=== PATIENT | female | born 1990 | race Two or more races ===

== ENCOUNTER 2021-08-22 10:02 | Emergency (ER) | payer MEDICAID ==
[~2021-08-22] VITALS: Ht 152.4 cm; Wt 56.8 kg
[2021-08-22 10:53] LABS: URINE HCG POSITIVE (NEG)
[2021-08-22 10:57] LABS: CLARITY,URINE CLEAR (Clear); COLOR,URINE STRAW (Yellow); GLUCOSE, URINE NEGATIVE (Neg); KETONES,URINE NEGATIVE (Neg); LEUKOCYTE ESTERASE ,URINE NEGATIVE (Neg); NITRITES, URINE NEGATIVE (Neg); OCCULT BLOOD,URINE NEGATIVE (Neg); PROTEIN,URINE NEGATIVE (Neg); UA COLLECTION TYPE CLN CATCH MIDSTREAM; UROBILINOGEN,URINE 0.2 E.U/dL (0.2-1.0)
[2021-08-22] MEDS ORDERED: normal saline 1000ML IV soln IVB ONE (14:30)
[2021-08-22] MEDS ORDERED: dextrose 5%-1/2 normal saline 1,000 ML IV ONE (14:30)
[2021-08-22] MEDS ORDERED: PYRIDOXINE HCL (VITAMIN B6) 250 MG TABLET PO ONE (14:35)
[2021-08-22 14:40] LABS: BASOPHILS % (AUTO) 0.2 % (0-1); EOSINOPHILS # (AUTO) 0.1 X10'3 (0-0.9); EOSINOPHILS % (AUTO) 1.2 % (0-6); HEMATOCRIT 36.1 % (35.0-45.0); HEMOGLOBIN 12.3 g/dl (12.0-16.0); LYMPHOCYTES # (AUTO) 2.3 X10'3 (1.1-4.8); LYMPHOCYTES % (AUTO) 22.2 % (21-51); MEAN CORPUSCULAR HEMOGLOBIN 29.4 PG (27.0-31.0); MEAN CORPUSCULAR HGB CONC 33.9 g/dL (33.0-36.5); MEAN CORPUSCULAR VOLUME 86.6 FL (78-98); MEAN PLATELET VOLUME 8.8 FL (7.4-10.4); MONOCYTES # (AUTO) 0.6 X10'3 (0-0.9); MONOCYTES % (AUTO) 5.8 % (2-12); NEUTROPHILS # (AUTO) 7.3 X10'3 (1.8-7.7); NEUTROPHILS % (AUTO) 70.6 % (42-75); PLATELET COUNT 288 X10'3 (140-440); RED BLOOD COUNT 4.18 X10'6 (4.20-5.60); RED CELL DISTRIBUTION WIDTH 12.8 % (11.5-14.5); WHITE BLOOD COUNT 10.4 X10'3 (4.5-11.0)
[2021-08-22 14:49] LABS: URINE AMPHETAMINE SCREEN NEGATIVE (Neg); URINE BARBITUATE SCREEN NEGATIVE (Neg); URINE BENZODIAZEPINES SCREEN NEGATIVE (Neg); URINE CANNABINOID SCREEN NEGATIVE (Neg); URINE COCAINE SCREEN NEGATIVE (Neg); URINE METHADONE SCREEN NEGATIVE (Neg); URINE OPIATE SCREEN NEGATIVE (Neg); URINE PHENCYCLIDINE SCREEN NEGATIVE (Neg)
[2021-08-22 14:54] LABS: ALANINE AMINOTRANSFERASE 45 U/L (12-78); ALBUMIN 3.6 G/DL (3.4-5.0); ALBUMIN/GLOBULIN RATIO 0.8 (1.1-1.5); ALKALINE PHOSPHATASE 60 IU/L (46-116); ANION GAP 10 (8-16); ASPARTATE AMINO TRANSFERASE 30 U/L (10-37); BILIRUBIN,TOTAL 0.3 MG/DL (0.1-1.0); BLOOD UREA NITROGEN 4 MG/DL (7-18); BUN/CREATININE RATIO 9.3 (6.6-38.0); CALCIUM 8.8 MG/DL (8.5-10.1); CHLORIDE 100 MMOL/L (99-107); CREATININE 0.43 MG/DL (0.40-0.90); GLUCOSE 82 MG/DL (70-104); POTASSIUM 3.8 MMOL/L (3.5-5.1); SODIUM 133 MMOL/L (135-145); TOTAL CARBON DIOXIDE 22.7 MMOL/L (24-32); TOTAL PROTEIN 8.1 G/DL (6.4-8.2); eGFR > 90 ML/MIN
[2021-08-22 17:19] VITALS: BP 106/41
== END 2021-08-22 17:21 | disposition home or self-care (01) ==
LOC: ER 10:03
DX: O21.0 Mild hyperemesis gravidarum (principal); R51.9 Headache, unspecified; R32 Unspecified urinary incontinence; R07.89 Other chest pain; Z3A.10 10 weeks gestation of pregnancy
CPT/HCPCS: 36415; 80053; 80305; 81003; 81025; 84702; 85025; 96360; 96361; 99283; J7030; J7042

== ENCOUNTER 2024-10-25 13:49 | Outpatient (CLI) | payer MEDICAID ==
--- NOTE | 2024-10-25 15:32 | RADIOLOGY REPORT ---
CLINICAL HISTORY: Encounter for IUD insertion. COMPARISON:None TECHNIQUE: Transabdominal grayscale sonographic imaging of the uterus and ovaries was performed, assi sted by color Doppler technique. Duplex Doppler ultrasound of both ovaries was also performed. FINDINGS: The uterus measures 7.5 x 3.3 x 5.6 cm. There is homogeneous echogenicity. Endometrial thic kness measures 0.8 cm, within normal limits. Trace fluid in the cul-de-sac. Right ovary measures 3.1 x 2.0 x 3.3 cm. Arterial and venous blood flow demonstrated. Left ovary measures 3.0 x 2.3 x 2.6 cm. Arterial and venous blood flow demonstrated. IMPRESSION: Unremarkable uterus and ovaries. No sonographic evidence of ovarian torsion.
== END 2024-10-25 23:59 | disposition home or self-care (01) ==
LOC: RAD 13:49
PROVIDERS: ATTEND Surgery
DX: Z30.430 Encounter for insertion of intrauterine contraceptive device (principal)
CPT/HCPCS: 76856; 93976